=== PATIENT | female | born 1950 | race African-American/Black ===

== ENCOUNTER 2016-11-13 13:10 | Emergency (ER) | payer OTHER ==
[~2016-11-13] VITALS: Ht 167.6 cm; Wt 95.3 kg
[~2016-11-13 13:10] MED LIST: ALDACTONE25 MG PO; ASPIRIN81 M4 PO; ATORVASTATIN CA40 M1 PO; BEET ROOT EXTRACT PO; BYSTOLIC20 M1 PO; CHLORTHALIDONE25 M1 PO; CHLORTHALIDONE50 M1 PO; COZAAR100 M1 PO; HYDROCHLOROTHIA25 M1 PO; LABETALOL HCL100 M1 PO; LABETALOL HCL300 M1 PO; LOSARTAN POTAS100 M1 PO; NIFEDIPINE ER30 M2 PO; NIFEDIPINE ER60 M2 PO; TURMERIC500 MG PO
[2016-11-13 14:08] VITALS: BP 215/110
--- NOTE | 2016-11-13 14:23 | ED GENERAL ADULT ---
History of Present Illness General Chief Complaint: General Adult Stated Complaint: ELAVATED BP Source: patient Exam Limitations: no limitations Vital Signs & Intake/Output Vital Signs & Intake/Output Vital Signs Date Time Temp Pulse Resp B/P B/P Pulse O2 O2 Flow FiO2 Mean Ox Delivery Rate 11/13 1408 215/110 11/13 1328 95.8 84 16 230/110 99 Room Air Allergies Coded Allergies: NO KNOWN ALLERGIES (12/11/11) Reconcile Medications Aspirin (Aspirin*) 81 MG TAB.CHEW 2 TAB PO DAILY BLOOD THINNER Atorvastatin Calcium 40 MG TABLET 1 TAB PO 1700 [facility] Chlorthalidone 50 MG TABLET 1 TAB PO DAILY HTN Labetalol HCl 300 MG TABLET 1 TAB PO BID HTN Losartan Potassium 100 MG TABLET 1 TAB PO DAILY BP (Reported) Nifedipine (Nifedipine ER) 60 MG TAB.ER.24 1 TAB PO DAILY HTN Spironolactone (Aldactone) 25 MG TABLET 1 TAB PO DAILY HTN Triage Note: PT STATES BP WAS "280/146 " THIS AM, RAN OUT OF NEFEDIPINE 4 DAYS AGO. TOOK LABETOLOL AND EDARBI WHILE IN WAITING ROOM. DENIES CHEST PAIN OR SOB. Triage Nurses Notes Reviewed? yes HPI: Patient presents for evaluation of high blood pressure. Patient states he attended a health fair prior to arrival and she has a blood pressure determined to be 289/136 since then she has taken her blood pressure medications. She does not feel she needs to stay in the emergency Department any longer. She states her blood pressure is doing better. She denies use of decongestants or caffeine. His chest pain visual changes shortness of breath or any other complaint at this time. Past History Travel History Traveled to [place] past 21 day No Medical History Any Pertinent Medical History? 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 No Review of Systems Review of Systems Constitutional: Reports: no symptoms. EENTM: Reports: no symptoms. Respiratory: Reports: no symptoms. Cardiovascular: Reports: no symptoms. GI: Reports: no symptoms. Genitourinary: Reports: no symptoms. Musculoskeletal: Reports: no symptoms. Skin: Reports: no symptoms. Neurological/Psychological: Reports: no symptoms. Hematologic/Endocrine: Reports: no symptoms. Immunologic/Allergic: Reports: no symptoms. All Other Systems: Reviewed and Negative Physical Exam Physical Exam General Appearance: SEE BELOW Comments: Gen.: Well-nourished, well-developed, no acute respiratory distress. Head: Normocephalic, atraumatic. Eyes: Normal inspection bilaterally Ears: Normal inspection bilaterally Nose: Normal inspection Throat/mouth : Moist mucosa Neck: Supple, full range of motion, no goiter Heart: Regular rate and rhythm, no murmurs rubs or gallops Lungs: Clear to auscultation bilaterally with normal air entry Chest: Nontender Back: Normal range of motion Abdomen: Soft, nontender, nondistended, normal bowel sounds Extremities: Normal range of motion grossly, equal radial pulses, no cyanosis clubbing or edema Neurologic: Cranial nerves grossly intact, speech is clear Skin: warm and dry Psychiatric: Calm, cooperative, no apparent delusions or hallucinations Core Measures ACS in differential dx? No CVA/TIA Diagnosis: No Severe Sepsis Present: No Septic Shock Present: No Progress Differential Diagnoses I considered the following diagnoses in my evaluation of the patient: Hypertensive urgency, hypertensive emergency Plan of Care: Orders Procedure Date/time Status EKG 11/13 1334 Active Initial ED EKG: NSR, no ST T wave changes Comments: Patient declined discharge instructions. I have instructed her to follow up with her primary care physician within 24-48 hours for reevaluation of her blood pressure. Departure Departure Disposition: HOME OR SELF CARE Condition: Stable Clinical Impression Primary Impression: Hypertension Referrals: ALHAJI LEDESMA MD (PCP/Family) Additional Instructions: Patient declined instructions Departure Forms: Customer Survey General Discharge Information Critical Care Note Critical Care Note Critical Care Time: non-applicable
== END 2016-11-13 14:08 ==
LOC: ERH 13:10
DX: I10 Essential (primary) hypertension (principal)
CPT/HCPCS: 93005; 93010